=== PATIENT | female | born 1945 ===

== ENCOUNTER 2016-08-18 22:38 | Emergency (ER) | payer MEDICARE, OTHER ==
[2016-08-19] MEDS ORDERED: MAALOX/LIDO2%VISC/SIMETHICONE 40 ML BOT ONE (00:11)
[2016-08-19 00:16] LABS: ABSOLUTE NEUTROPHIL COUNT 9.9 K/mm3 (1.8-7.7); BASO # 0.1 K/mm3 (0.0-0.2); BASO % 0.4 % (0.2-1.0); EOS # 0.1 (0.0-0.5); EOS % 0.5 % (0.9-2.9); HEMATOCRIT 38.5 % (37.0-47.0); HEMOGLOBIN 12.9 gm/l (12.0-16.0); IMM NEUT # 0.1 K/mm3 (0-0.2); IMM NEUT% 0.4 % (0-1); LYMPH # 1.8 (1.0-4.8); LYMPH % 14.6 % (15-45); MEAN CELL VOLUME 87.7 fl (81.0-99.0); MEAN CORPUSCULAR HEMOGLOBIN 29.4 pg (27.0-31.0); MEAN CORPUSCULAR HGB CONC 33.5 g/dl (33.0-37.0); MEAN PLATELET VOLUME 11.5 fl (7.4-10.4); MONO # 0.3 (0.0-0.8); MONO % 2.6 % (4-12); NEUT % 81.5 % (43-75); PLATELET COUNT 227 K/mm3 (130-400); RED CELL DISTRIBUTION WIDTH 13.2 % (11.5-14.5)
[2016-08-19] MEDS ORDERED: ONDANSETRON 4 MG/2ML 2 ML VIAL ONE (00:22)
[2016-08-19 00:27] LABS: ALB/GLOB RATIO 1.1 (>1.0); ALBUMIN 3.9 gm/dL (3.5-5.7)
[2016-08-19] MEDS ORDERED: KETOROLAC TROMETHAMINE 15 MG/ML VIAL ONE (01:01)
== END 2016-08-19 01:23 | disposition home or self-care (01) ==
LOC: ED 22:38
DX: K29.70 Gastritis, unspecified, without bleeding (principal); I10 Essential (primary) hypertension; J45.909 Unspecified asthma, uncomplicated
CPT/HCPCS: 83690; 85025; 80053; 96375; 99283 ×2; 96374; A9270; J1885; J2405

== ENCOUNTER 2016-09-15 14:27 | Inpatient (IN) | payer MEDICARE, OTHER ==
[2016-09-15] MEDS ORDERED: IOPAMIDOL 300 (61%) 100 ML VIAL IV ONE (14:28)
[2016-09-15] MEDS ORDERED: MAALOX/LIDO2%VISC/SIMETHICONE 40 ML BOT ONE (15:19)
[2016-09-15] MEDS ORDERED: SUCRALFATE 1 G/10 ML DOSE ONE (15:20)
[2016-09-15] MEDS ORDERED: LACTATED RINGERS 1,000 ML ONE ×2 (15:20→16:56)
[2016-09-15] MEDS ORDERED: FAMOTIDINE 20 MG TABLET ONE (15:20)
[2016-09-15 15:46] LABS: ABSOLUTE NEUTROPHIL COUNT 6.2 K/mm3 (1.8-7.7); BASO % 0.5 % (0.2-1.0); EOS # 0.2 (0.0-0.5); EOS % 2.2 % (0.9-2.9); HEMATOCRIT 40.4 % (37.0-47.0); HEMOGLOBIN 13.5 gm/l (12.0-16.0); IMM NEUT% 0.2 % (0-1); LYMPH # 1.7 (1.0-4.8); LYMPH % 19.8 % (15-45); MEAN CORPUSCULAR HEMOGLOBIN 29.4 pg (27.0-31.0); MEAN CORPUSCULAR HGB CONC 33.4 g/dl (33.0-37.0); MEAN PLATELET VOLUME 11.6 fl (7.4-10.4); MONO # 0.4 (0.0-0.8); MONO % 5.2 % (4-12); NEUT % 72.1 % (43-75); PLATELET COUNT 228 K/mm3 (130-400); RED CELL DISTRIBUTION WIDTH 13.2 % (11.5-14.5)
[2016-09-15 16:03] LABS: ALB/GLOB RATIO 1.2 (>1.0); CALCIUM 9.1 mg/dL (8.6-10.3)
[2016-09-15] MEDS ORDERED: MORPHINE SULFATE 4 MG/ML SYRINGE ONE (16:25)
[2016-09-15] MEDS ORDERED: PROCHLORPERAZINE 5 MG/ML 2 ML VIAL ONE (16:56)
--- NOTE | 2016-09-15 17:51 | CT ---
ADDENDUM #1 The first line of the impression should read as follows: Simple pancreatitis without evidence of necrosis, pseudocyst or vascular complications. The remainder of the exam stands as is. ORIGINAL REPORT Exam Type: ABD/PELVIS W/ CON Date and Time: 09/15/2016 3:08 PM Clinical information: Epigastric pain and vomiting. Comparison: None Technique: Contiguous axial 4 mm images were obtained from the lung bases through the pelvis after the uneventful IV administration of 100 cc of Isovue-300. Sagittal and coronal reformations with high resolution lung algorithm images were also obtained at this time. CT DI: 10.1 DLP 487.7 FINDINGS: Lung base : Dependent and atelectatic changes are present at the lung bases. Visualized heart:There is no pericardial effusion. LIVER: Diffuse fatty infiltration without focal lesion. Areas of fatty sparing are thought to be present along the dome and gallbladder fossa. BILE DUCTS: Common bile duct measures 1.2 cm on axial image 34. GALLBLADDER: No calcified gallstones. Normal caliber wall. Debris or small stones may be present along the dependent portion. PANCREAS: Peripancreatic inflammation is present compatible with pancreatitis. No definite evidence of necrosis is noted. No pseudocyst, splenic vein thrombosis or splenic artery pseudoaneurysm is present. Moderate inflammation is along the head and uncinate process region. This doesn't gallstones the duodenum. SPLEEN: within normal limits. ADRENALS: within normal limits. KIDNEYS: within normal limits. Stomach and small BOWEL: Normal caliber. Large bowel: Air and stool are noted within the large bowel. Appendix is normal. LYMPH NODES: Chrissie hepatis adenopathy is noted on image 29 measuring 2.1 x 1 cm. Second node on image 36 measures approximately 2.1 x 1.1 cm. PERITONEUM: no ascites or free air, no fluid collection. VESSELS: Mild atherosclerotic disease. RETROPERITONEUM: within normal limits. ABDOMINAL WALL: within normal limits. Bladder: Decompressed. Uterus and adnexa: Present. Dilated tortuous vessels are noted bilaterally. Findings could relate to pelvic congestion syndrome in the correct clinical context and correlation is recommended. BONES: Grade 2 anterolisthesis of L5 on S1 is present. Bilateral pars defects are noted. The sagittal alignment is otherwise intact. No lytic or sclerotic lesions. IMPRESSION: Simple pancreatitis without evidence of sclerosis, pseudocyst or vascular complications. Multiple small stones or sludge is present within the gallbladder. Common bile duct is dilated measuring 1.2 cm. Diffuse fatty infiltration to the liver with probable focal sparing along the dome and gallbladder fossa. Grade 2 anterolisthesis of L5 on S1 with bilateral pars defects. Other incidental findings as above. Findings were called to Dr. Landon at approximately 1746 hours on 09/15/2016.
--- NOTE | 2016-09-15 18:16 | US ---
ABDOMINAL-LIMITED: 09/15/2016 4:22 PM CLINICAL HISTORY: Right upper quadrant pain with elevated lipase and LFTs.. STUDY: Limited right upper quadrant ultrasound COMPARISON: CT abdomen and pelvis earlier on the same day. FINDINGS: Gallbladder: Wall thickness: Normal Cholelithiasis: Multiple small stones or sludge. Pericholecystic Fluid: none Sonographic Cordero's Sign: Positive Bile ducts: Common bile duct measures upwards 7 mm. Limited visualized Liver and RUQ structures: Normal IMPRESSION: Positive sonographic Cordero's sign with small stones and sludge. No other findings of acute cholecystitis. Report was uploaded to the electronic medical record at approximately 1811 hours on 09/15/2016.
[2016-09-15] MEDS ORDERED: BLISTEX LIPSTICK 1 EACH TP PRN (20:19)
[2016-09-15] MEDS ORDERED: SODIUM CHLORIDE 0.9% 100 ML IV PRN (20:19)
[2016-09-15] MEDS ORDERED: BISACODYL 10 MG SUP PR PRN ×2 (20:19→20:23)
[2016-09-15] MEDS ORDERED: INSULIN REGULAR HUMAN (DOSE) 100 UNITS/1 ML SUB-Q PRN (20:23)
[2016-09-15] MEDS ORDERED: ONDANSETRON 4 MG/2ML 2 ML VIAL IV PRN (20:25)
[2016-09-15] MEDS ORDERED: ALBUTEROL NEB 2.5 MG/3 ML VIAL.NEB NEB PRN (20:25)
[2016-09-15] MEDS ORDERED: SODIUM CHLORIDE 0.9% 1,000 ML IV SCH (20:30)
[2016-09-15] MEDS ORDERED: PANTOPRAZOLE SODIUM 40 MG VIAL IV SCH (20:30)
[2016-09-15] MEDS ORDERED: HYDROMORPHONE HCL 2 MG/ML SYRINGE IV PRN (20:31)
[2016-09-15 20:47] VITALS: BMI 27.9
[2016-09-15] MEDS ORDERED: FLU VACC 2016-17 (65 YR+)/PF 180 MCG/0.5 ML SYRINGE IM V ONE (20:49)
[2016-09-15] MEDS ORDERED: PUMP TUBING ONE (21:07)
[2016-09-15] MEDS: HYDROMORPHONE HCL 1 MG/ML SYRINGE IV PRN (21:27)
[2016-09-15] MEDS: PANTOPRAZOLE SODIUM 40 MG VIAL IV SCH (21:27)
[2016-09-15] MEDS: INSULIN GLARGINE (DOSE) 100 UNITS/ML UNIT SUB-Q SCH (21:48)
[2016-09-15] MEDS: SODIUM CHLORIDE 0.9% 1,000 ML IV SCH (23:28)
[2016-09-16] MEDS: HYDROMORPHONE HCL 1 MG/ML SYRINGE IV PRN ×2 (03:57→16:21)
[2016-09-16] MEDS: SODIUM CHLORIDE 0.9% 1,000 ML IV SCH ×4 (03:58→19:21)
[2016-09-16 06:01] LABS: HEMATOCRIT 34.1 % (37.0-47.0); HEMOGLOBIN 11.2 gm/l (12.0-16.0); MEAN CELL VOLUME 90.2 fl (81.0-99.0); MEAN CORPUSCULAR HEMOGLOBIN 29.6 pg (27.0-31.0); MEAN CORPUSCULAR HGB CONC 32.8 g/dl (33.0-37.0); RED CELL DISTRIBUTION WIDTH 13.2 % (11.5-14.5)
[2016-09-16 06:24] LABS: ALB/GLOB RATIO 1.2 (>1.0); ALBUMIN 3.2 gm/dL (3.5-5.7); CALCIUM 7.8 mg/dL (8.6-10.3); CHOLESTEROL RISK RATIO 2.5 (3.7-5.6)
--- NOTE | 2016-09-16 06:34 | HP ---
Lorrie Frank ADMIT DATE: 09/15/2016 CHIEF COMPLAINT: Abdominal pain. HISTORY OF PRESENT ILLNESS: Lorrie is a 70-year-old female who is for the most part healthy. She presented to the emergency room with severe abdominal pain. She has been having off and on abdominal pain for about a month, but it has gotten significantly worse within the last 12 hours or so. She was seen by her primary care physician last week and presumably diagnosed with H-pylori and she was started Clarithromycin and amoxicillin though she is unable to tell exactly why she was placed on these medications. The medications have not seem to help and she has had increasing pain and nausea just today. REVIEW OF SYSTEMS: No fevers, no chills, no headache, no chest pain, no shortness of breath, no cough. No new extremity weakness, numbness, tingling, or swelling. Review of systems as noted otherwise negative. PAST MEDICAL HISTORY: 1. Diabetes mellitus type 2. 2. Hypertension. 3. Distant history of reactive airway disease. PAST SURGICAL HISTORY: None. ALLERGIES: No known drug allergies. CURRENT MEDICATIONS: 1. Metformin 500 mg by mouth daily. 2. Clarithromycin and amoxicillin just prescribed recently, dose is unknown. 3. Losartan 50 mg by mouth daily. SOCIAL HISTORY: She lives with her and daughter in [place]. No alcohol, tobacco, or drug use. FAMILY HISTORY: Noncontributory. OBJECTIVE: VITAL SIGNS: In the emergency room blood pressure 124/62, pulse is 67, respirations 16, O2 sat 94% on room air. GENERAL: This is a well-developed, well-nourished elderly female. At the time I examine her she has been treated with a significant amount of pain medication and is resting comfortably. She is responsive and answers questions appropriately. HEENT: Normocephalic, atraumatic. Oropharynx is moist. NECK: Supple. No JVD. LUNGS: Clear. No wheezes, rales, or rhonchi. HEART: Regular rate and rhythm. ABDOMEN: Soft. Bowel sounds are hypoactive. She is exquisitely tender to palpation in the mid epigastric and right upper quadrant. No organomegaly. EXTREMITIES: No edema. SKIN: Clear with no rashes. LABORATORY: CBC with a white count of 8.5, hemoglobin 13.5, hematocrit 40.4, platelets 228. Chemistry panel with sodium of 137, potassium 3.9, chloride 103, carbon dioxide 24, BUN of 19, creatinine 0.7, glucose of 134, calcium 9.1, total bilirubin 2.6, AST 594, ALT 531, alk phos 219. Tropon in less than 0.01. Lipase is elevated at 3182. Urinalysis is pending. DIAGNOSTICS: Abdominal/pelvic CT scan performed in the emergency room showed findings of pancreatic inflammation with no pseudocyst or necrosis noted consistent with mild pancreatitis by CT criteria. Abdominal ultrasound performed in the emergency room showing gallstones, small stones, and sludge, and a positive sonographic Cordero's sign, but no other findings of cholecystitis. ASSESSMENT: 1. Acute pancreatitis presumed gallstone pancreatitis. 2. Diabetes mellitus type 2. 3. Hypertension. PLAN: We have admitted her to the hospitalist service, will keep her nothing by mouth, treat her with aggressive IV fluid rehydration, and IV medication for pain and nausea as needed. For her diabetes we will place on basal bolus protocol. Will obtain a surgery consult when available. We will follow serial laboratory work. Supportive care otherwise. Deep venous thrombosis prophylaxis with mechanical only as she may be going to surgery in the next 24 hours or so depending on surgical consult. JOB: [id number] CC: Dr. Li in [place] Dr. Alfredito Gandara
--- NOTE | 2016-09-16 07:43 | CONS ---
Lorrie Frank [id number] DATE: 09/15/2016 CHIEF COMPLAINT: Abdominal pain. HISTORY OF PRESENT ILLNESS: Lorrie Frank is a 70-year-old female who was seen in the hospital in consultation on 09/15/2016. She has been feeling ill for a month. She got significantly worse today. She had some nausea with vomiting. She had no hematemesis. She had no fevers. She presented to the emergency room where she was found to have significant elevation of her lipase as well as her liver function tests. She had a CT scan that showed some gallstones without biliary dilation. Pancreatitis was noted. Ultrasound showed mild dilation of the common bile duct at 7 mm with no signs of acute cholecystitis other than a sonographic Cordero's sign. The patient is on amoxicillin and Clarithromycin and it sounds like she tested positive for H-pylori. PAST MEDICAL HISTORY: Hypertension, type 2 diabetes mellitus, history of asthma. PAST SURGICAL HISTORY: None. CURRENT MEDICATIONS: 1. Losartan. 2. Metformin. 3. Amoxicillin. 4. Clarithromycin. ALLERGIES: To medications none known. FAMILY HISTORY: No familial history of intestinal cancers. SOCIAL HISTORY: She does not smoke. She completely denies alcohol use. REVIEW OF SYSTEMS: Constitutional: No complaints. Eyes: No complaints. Ears, nose, throat no complaints. Cardiac: No complaints. Pulmonary: No complaints. GI: As above. : No complaints. Gynecologic: No complaints. Musculoskeletal: No complaints. Neurologic: She has had headaches. Endocrine: No complaints. Hematologic: No complaints. Psychiatric: No complaints. PHYSICAL EXAMINATION: VITALS: Temperature 97.6, pulse 66, blood pressure 136/63, respirations 16, O2 sat 96% on room air. GENERAL: She is awake, but easily falls asleep. She arouses. She responds appropriately to commands with the assistance of her family interpreting for her. HEENT: Head is atraumatic normocephalic. Her pupils are equal. Sclerae are nonicteric. Oropharynx no exudate or erythema seen. NECK: Supple without lymphadenopathy or thyromegaly. LUNGS: Clear to auscultation bilaterally. HEART: Regular rate and rhythm. No murmurs are heard. ABDOMEN: Soft, nondistended. She points to the epigastric region as the area of maximal tenderness. She describes tenderness in all areas of the abdomen with palpation. She seems to wince more in the upper abdomen compared to the lower abdomen. She says that pain radiates into her back. EXTREMITIES: Without cyanosis, clubbing, or edema. NEUROLOGIC: She arouses. She appears oriented. Sensation grossly intact in all extremities without signs of neuropathy. PSYCHIATRIC: With the difficulties with interpreting Cam[place]onian in Faroese she does not appear to have signs of anxiety or depression. Appears able to make informed medical decisions with science interpreter. LABORATORIES: Sodium 137, potassium 3.9, chloride 103, carbon dioxide 24, BUN 19, creatinine 0.7, glucose is 134, total bilirubin is 2.6, AST is 594, ALT is 531, alk phos is 219. Troponin less than 0.01. Albumin 4.0, lipase is 3182. White blood cell count is 8.5, hemoglobin 13.5, and platelets are 228. ASSESSMENT: 1. Acute gallstone pancreatitis. 2. Possible chronic cholecystitis. 3. Possible gastritis with possible Helicobacter pylori infection. 4. Hypertension. 5. Type 2 diabetes mellitus. 6. Asthma. PLAN: Through her family interpreting for her we discussed the etiology of her pancreatitis, it is most certainly caused by gallstones. We will see on follow up laboratories if her pancreatitis and liver function test improve indicating resolution of obstruction. If she continues to show signs of obstruction may need an ERCP. We talked about laparoscopic cholecystectomy during this hospitalization to prevent further attacks of pancreatitis. The family expressed understanding and are agreeable to the plan. At this point, I do not see a need for intravenous antibiotics. We will have to get a hold of outside records to see if we need to treat for Helicobacter pylori. I see no indication that she is on any type of proton pump inhibitor at home. With the pancreatitis is probably reasonable to start her on some intravenous Protonix. My recommendations discussed with hospitalist. Surgery will follow along with the hospitalist service. JOB: [id number]
--- NOTE | 2016-09-16 07:48 | PDOC43 ---
- Subjective Subjective: Reports Pain Tolerable (Better, but still present.), Denies Nausea - Objective Vital Signs Temperature 98.0 F 09/16/16 03:28 Pulse Rate 72 09/16/16 03:28 Respiratory Rate 16 09/16/16 03:28 Blood Pressure 130/62 09/16/16 03:28 O2 Saturation by Pulse Oximetry 96 09/16/16 03:28 Oxygen Delivery Method Room Air Oxygen Flow Rate 0 Laboratory 09/16/16 05:30 09/16/16 05:30 09/16/16 09/16/16 09/15/16 05:30 05:16 21:40 RBC 3.78 L MCHC 32.8 L Estimated GFR 99 H POC Capillary Glucose 118 H 133 H Calcium 7.8 L Total Bilirubin 3.8 H AST 269 H ALT 384 H Alkaline Phosphatase 182 H Total Protein 5.9 L Albumin 3.2 L Cholesterol Risk Factr 2.5 L Lipase 947 H Active Medication Orders Category Date Time Status Albuterol Sulf Neb 2.5mg/3ml [Ventolin Inhalation Med 09/15/16 20:25 Active Solution (Dose)] 2.5 mg NEB Q2H PRN Bisacodyl [Dulcolax] Med 09/15/16 20:23 Active 10 mg [place] DAILY PRN Hydromorphone HCl [Dilaudid] Med 09/15/16 20:25 Active 1 - 2 mg IV Q2H PRN Hydromorphone HCl [Dilaudid] Med 09/15/16 20:31 Active 1 - 2 mg IV Q2H PRN Insulin Glargine (Dose) [Lantus (Dose)] Med 09/15/16 21:00 Active 20 units SUB-Q Q24H Insulin Regular Human (Dose) [Novolin R (Dose)] Med 09/15/16 20:23 Active See Protocol SUB-Q ACBEDTIME PRN Lip [place] [Blistex] Med 09/15/16 20:19 Active 1 each TP PRN PRN Menthol/Cetylpyridinium [Cepacol] Med 09/15/16 20:19 Active 1 each PO PRN PRN Ondansetron 4 mg/2ml Vial [Zofran] Med 09/15/16 20:25 Active 4 mg IV Q3H PRN Pantoprazole Sodium [Protonix] Med 09/15/16 21:00 Active 40 mg IV Q24H Sodium Chloride 0.9% 1,000 ml Med 09/15/16 21:30 Active IV 200 mls/hr Sodium Chloride 0.9% 100 ml Med 09/15/16 20:19 Active IV PRN Sodium Chloride 0.9% Flush [Normal Saline 10ml Flush] Med 09/15/16 20:19 Active 10 - 50 ml IV PRN PRN Sodium Chloride 0.9% Flush [Normal Saline 10ml Flush] Med 09/16/16 01:00 Active 10 ml IV Q8HR Intake and Output 09/15/16 09/16/16 09/17/16 06:59 06:59 06:59 Intake Total 2238 Output Total 600 Balance 1638 General: Alert, Oriented x3 Abdomen: Soft, Tenderness (Epigastric), Non-Distended Skin: Normal Color Psych/Mental Status: Normal Affect - Assessment/ Plan (1) Pancreatitis due to common bile duct stone Status: AcuteAssessment/ Plan: Pancreas better, but bilirubin up. Probably still has a common duct stone. Sips of liquids only. IVF. Follow daily labs. May need ERCP depending on what her bilirubin does going forward. Discussed with hospitalist.
--- NOTE | 2016-09-16 10:51 | PDOC43 ---
- Subjective Chief Complaint: Abd Pain Feels sl better this AM. Still w/ mid-epigastric and RUQ pain. No N/V. No F/ C. No cough/SOB. Subjective: Denies Shortness of Breath, Denies Cough, Denies Chest Pain, Denies Abdominal Pain, Denies Nausea, Denies Vomiting, Denies Fever, Denies Chills - Objective Vital Signs Temperature 98.0 F 09/16/16 07:46 Pulse Rate 73 09/16/16 07:46 Respiratory Rate 16 09/16/16 08:00 Blood Pressure 140/71 09/16/16 07:46 O2 Saturation by Pulse Oximetry 96 09/16/16 07:46 Oxygen Delivery Method Room Air Oxygen Flow Rate 0 Intake and Output 09/15/16 09/16/16 09/17/16 06:59 06:59 06:59 Intake Total 2238 Output Total 600 Balance 1638 General: Alert, Oriented x3, Cooperative, No Acute Distress HEENT: Atraumatic Lungs: Clear to Auscultation Bilaterally Cardiovascular: Gallops Abdomen: Soft, Tenderness, Hypoactive Bowel Sounds, Non-Distended Extremities: No Edema Laboratory 09/16/16 05:30 09/16/16 05:30 09/16/16 09/16/16 09/15/16 05:30 05:16 21:40 RBC 3.78 L MCHC 32.8 L Estimated GFR 99 H POC Capillary Glucose 118 H 133 H Calcium 7.8 L Total Bilirubin 3.8 H AST 269 H ALT 384 H Alkaline Phosphatase 182 H Total Protein 5.9 L Albumin 3.2 L Cholesterol Risk Factr 2.5 L Lipase 947 H 09/15/16 09/16/16 15:15 05:30 Calcium 9.1 7.8 L Total Bilirubin 2.6 H 3.8 H AST 594 H 269 H ALT 531 H 384 H Alkaline Phosphatase 219 H 182 H Triglycerides 48 Cholesterol 157 Cholesterol Risk Factr 2.5 L LDL Cholesterol 85 VLDL Cholesterol 10 HDL Cholesterol 62 Lipase 3182 H 947 H Current Medications: Current meds reviewed in EMR. - Problems: Assessment/Plan (1) Pancreatitis due to common bile duct stone Status: AcuteAssessment/Plan: Sl improvement though bili increased. Con't IVF, supportive care. Follow labs. Surgery following- anticipate ERCP vs choly in near future. (2) DM2 (diabetes mellitus, type 2) Qualifiers: Diabetes mellitus complication status: without complication Status: ChronicAssessment/Plan: Stable. Con't to hold po meds and tx with basal/bolus. (3) HTN (hypertension) Qualifiers: Hypertension type: essential hypertension Qualifier Code: (I10) Essential (primary) hypertension Status: ChronicAssessment/Plan: Stable. Con't to hold po meds. VTE Prophylaxis: Mechanical Disposition: Unknown.
[2016-09-16] MEDS: PANTOPRAZOLE SODIUM 40 MG VIAL IV SCH (20:57)
[2016-09-16] MEDS: INSULIN GLARGINE (DOSE) 100 UNITS/ML UNIT SUB-Q SCH (20:57)
[2016-09-17] MEDS: SODIUM CHLORIDE 0.9% 1,000 ML IV SCH ×2 (00:19→05:22)
[2016-09-17 05:55] LABS: HEMOGLOBIN 10.7 gm/l (12.0-16.0); MEAN CELL VOLUME 92.1 fl (81.0-99.0); MEAN CORPUSCULAR HGB CONC 31.5 g/dl (33.0-37.0); RED CELL DISTRIBUTION WIDTH 13.6 % (11.5-14.5)
[2016-09-17 06:12] LABS: CALCIUM 7.2 mg/dL (8.6-10.3)
[2016-09-17] MEDS ORDERED: SODIUM CHLORIDE 0.9% 1,000 ML IV SCH (07:57)
[2016-09-17] MEDS ORDERED: POTASSIUM CHLORIDE 40 MEQ in SODIUM CHLORIDE 0.9% 500 ML IV ONE (08:30)
--- NOTE | 2016-09-17 14:02 | PDOC43 ---
- Subjective Chief Complaint: Abd Pain Spoke with pt and family with assistance of Estephanie, who translated for us. Patient reports feeling better, pain reduced. Breathing feels a little fast, but overall, feeling much better. - Objective Vital Signs Temperature 99.6 F 09/17/16 07:41 Pulse Rate 68 09/17/16 07:41 Respiratory Rate 16 09/17/16 07:46 Blood Pressure 125/67 09/17/16 07:41 O2 Saturation by Pulse Oximetry 97 09/17/16 07:41 Oxygen Delivery Method Room Air Oxygen Flow Rate 0 Vital Signs Last 12 Hours Temp Pulse Resp BP Pulse Ox 09/17/16 07:46 16 09/17/16 07:41 99.6 F 68 16 125/67 97 Intake and Output 09/15/16 09/16/16 09/17/16 23:59 23:59 23:59 Intake Total 4638 2862 Output Total 1050 600 Balance 3588 2262 General: Alert, Cooperative, No Acute Distress HEENT: Atraumatic Lungs: Clear to Auscultation Bilaterally, Normal Air Movement Cardiovascular: Regular Rate and Rhythm Abdomen: Soft, Tenderness (mild epigastric discomfort, but reports better than at admission.), Normal Bowel Sounds (quiet, but normal.) Extremities: No Edema, No Tenderness Skin: Normal Color Neurological: Normal Speech Psych/Mental Status: Normal Affect, Normal Mood Laboratory 09/17/16 05:30 09/17/16 05:30 09/17/16 05:30 RBC 3.69 L MCHC 31.5 L Estimated GFR 99 H Calcium 7.2 L AST 87 H ALT 241 H Alkaline Phosphatase 174 H Total Protein 5.9 L Albumin 3.0 L bili 1.0 Current Medications: Current meds reviewed in EMR. Active Medications Albuterol Sulfate (Ventolin Inhalation Solution (Dose)) 2.5 mg NEB Q2H PRN PRN Reason: Wheezing Benzocaine/Menthol (Cepacol) 1 each PO PRN PRN PRN Reason: Sore Throat Bisacodyl (Dulcolax) 10 mg [place] DAILY PRN PRN Reason: Constipation Hydromorphone HCl (Dilaudid) 1 - 2 mg IV Q2H PRN PRN Reason: Pain Last Admin: 09/16/16 16:21 Dose: 1 mg Hydromorphone HCl (Dilaudid) 1 - 2 mg IV Q2H PRN PRN Reason: Pain Sodium Chloride (Sodium Chloride 0.9%) 100 mls @ 25 mls/hr IV PRN PRN PRN Reason: Flush Sodium Chloride (Sodium Chloride 0.9%) 1,000 mls @ 125 mls/hr IV .Q8H [facility] Last Admin: 09/17/16 08:59 Dose: 125 mls/hr Insulin Glargine (Lantus (Dose)) 20 units SUB-Q Q24H [facility] Last Admin: 09/16/16 20:57 Dose: 20 units Insulin Human Regular (Novolin R (Dose)) 0 units SUB-Q ACBEDTIME PRN; Protocol PRN Reason: Blood Sugar > Ondansetron HCl (Zofran) 4 mg IV Q3H PRN PRN Reason: Nausea/Vomiting Last Admin: 09/15/16 21:27 Dose: 4 mg Pantoprazole Sodium (Protonix) 40 mg IV Q24H [facility] Last Admin: 09/16/16 20:57 Dose: 40 mg Petrolatum/Paraffin/Mineral Oil (Blistex) 1 each TP PRN PRN PRN Reason: Dry and/or chapped lips Sodium Chloride (Normal Saline 10ml Flush) 10 - 50 ml IV PRN PRN PRN Reason: IV Flush Last Admin: 09/15/16 21:26 Dose: 20 ml Sodium Chloride (Normal Saline 10ml Flush) 10 ml IV Q8HR [facility] Last Admin: 09/17/16 08:59 Dose: Not Given - Problems: Assessment/Plan (1) Pancreatitis due to common bile duct stone Status: AcuteAssessment/Plan: Appears improved. Bili down to 1.0 today. Con't IVF, supportive care. Following labs. Surgery following- may be considered for chasidy in near future. (2) DM2 (diabetes mellitus, type 2) Qualifiers: Diabetes mellitus complication status: without complication Status: ChronicAssessment/Plan: Stable. BG 81-119 recently. Holding po meds and tx with basal/bolus. (3) HTN (hypertension) Qualifiers: Hypertension type: essential hypertension Qualifier Code: (I10) Essential (primary) hypertension Status: ChronicAssessment/Plan: Stable. Con't to hold po meds. VTE Prophylaxis: Mechanical Disposition: Unknown. Additional Comments: Check CXR for fluid overload. Holding IVF for now.
--- NOTE | 2016-09-17 15:16 | RAD ---
CHEST-AP BEDSIDE COMPARISON: Chest 2 views, 11/23/2009 HISTORY: Dyspnea FINDINGS: Views: Frontal chest. Lungs: Transverse band of increased density in the right lung base. Heart and vessels: Normal Trachea and bronchi: Normal Mediastinum and carol: Normal Costophrenic sulci: Mild blunting on the right. Chest wall and bones: Normal Upper abdomen: Normal. IMPRESSION: Mild right pleural effusion with possible infiltrate in the right lung base.
[2016-09-17] MEDS: PANTOPRAZOLE SODIUM 40 MG VIAL IV SCH (21:12)
[2016-09-17] MEDS: INSULIN GLARGINE (DOSE) 100 UNITS/ML UNIT SUB-Q SCH (21:12)
[2016-09-18 06:12] LABS: BILIRUBIN,INDIRECT 0.5 mg/dL (0.2-1.0)
[2016-09-18 06:15] LABS: BILIRUBIN,DIRECT 0.3 mg/dL (0.0-0.2)
--- NOTE | 2016-09-18 14:16 | PDOC43 ---
- Subjective Chief Complaint: Abd Pain Subjective: Reports Pain Tolerable, Reports Tolerating Diet Well, Reports Abdominal Pain (markedly improved), Denies Fever - Objective Vital Signs Temperature 98.6 F 09/18/16 13:30 Pulse Rate 67 09/18/16 13:30 Respiratory Rate 18 09/18/16 13:30 Blood Pressure 124/68 09/18/16 13:30 O2 Saturation by Pulse Oximetry 97 09/18/16 13:30 Oxygen Delivery Method Room Air Oxygen Flow Rate 0 Intake and Output 09/17/16 09/18/16 09/19/16 06:59 06:59 06:59 Intake Total 5262 2109 Output Total 1050 950 Balance 4212 1159 General: Alert, Oriented x3, Cooperative, No Acute Distress HEENT: Mucous membr. moist/pink Lungs: Clear to Auscultation Bilaterally Cardiovascular: Regular Rate and Rhythm Abdomen: Soft, Normal Bowel Sounds, Non-Distended, Other (minimal epigastric discomfort), No Tenderness Extremities: No Edema Laboratory 09/17/16 05:30 09/17/16 05:30 09/18/16 05:30 Direct Bilirubin 0.3 H AST 42 H ALT 165 H Alkaline Phosphatase 157 H Total Protein 6.0 L Albumin 3.0 L Current Medications: Current meds reviewed in EMR. - Problems: Assessment/Plan (1) Pancreatitis due to common bile duct stone Status: AcuteAssessment/Plan: Appears improved. Bili normal. Cont. IVF, supportive care. Following labs. Appreciate Surgery following- considering for chasidy in am. (2) DM2 (diabetes mellitus, type 2) Qualifiers: Diabetes mellitus complication status: without complication Diabetes mellitus termination clerk insulin use: without correction use Qualifier Code: (E11.9 ) Type 2 diabetes mellitus without complications Status: ChronicAssessment/ Plan: Stable. (3) HTN (hypertension) Qualifiers: Hypertension type: essential hypertension Qualifier Code: (I10) Essential (primary) hypertension Status: ChronicAssessment/Plan: Stable. Cont. to hold po meds. (4) Pleural effusion Status: SuspectedAssessment/Plan: CXR suggests some pleural effusion, poss infiltrate. Suspect fluid overload from IV fluids. IVF held yesterday; weight up > 6Kg. Sats good at 99% on RA. WBC up some, difficult to know if related to pancreatitis or other. VTE Prophylaxis: Mechanical Disposition: possibly tomorrow after surgery
[2016-09-18] MEDS: INSULIN GLARGINE (DOSE) 100 UNITS/ML UNIT SUB-Q SCH (20:35)
[2016-09-18] MEDS: PANTOPRAZOLE SODIUM 40 MG VIAL IV SCH (23:02)
[2016-09-18] MEDS: MENTHOL/CETYLPYRD 1 EACH LOZENGE PO PRN (23:04)
[2016-09-19] MEDS: MENTHOL/CETYLPYRD 1 EACH LOZENGE PO PRN (02:31)
[2016-09-19 06:40] LABS: ABSOLUTE NEUTROPHIL COUNT 9.1 K/mm3 (1.8-7.7); BASO # 0.1 K/mm3 (0.0-0.2); BASO % 0.4 % (0.2-1.0); EOS # 0.2 (0.0-0.5); EOS % 1.7 % (0.9-2.9); HEMOGLOBIN 10.5 gm/l (12.0-16.0); IMM NEUT% 0.3 % (0-1); LYMPH # 1.9 (1.0-4.8); LYMPH % 15.9 % (15-45); MEAN CELL VOLUME 89.1 fl (81.0-99.0); MEAN CORPUSCULAR HEMOGLOBIN 29.2 pg (27.0-31.0); MEAN CORPUSCULAR HGB CONC 32.8 g/dl (33.0-37.0); MEAN PLATELET VOLUME 12.7 fl (7.4-10.4); MONO # 0.6 (0.0-0.8); MONO % 4.7 % (4-12); PLATELET COUNT 166 K/mm3 (130-400); RED CELL DISTRIBUTION WIDTH 13.3 % (11.5-14.5)
[2016-09-19 07:01] LABS: CALCIUM 8.2 mg/dL (8.6-10.3)
[2016-09-19] MEDS ORDERED: POTASSIUM CHLORIDE 20 MEQ in SODIUM CHLORIDE 0.9% 250 ML IV ONE (07:36)
[2016-09-19] MEDS ORDERED: PUMP TUBING ONE (08:24)
[2016-09-19] MEDS ORDERED: IV START KIT ONE (08:29)
[2016-09-19] MEDS ORDERED: MAGNESIUM SULFATE 2 G/50 ML 2 G in Premix (Water) 50 ml 1 EACH IV ONE (10:07)
--- NOTE | 2016-09-19 10:18 | PDOC43 ---
- Subjective Chief Complaint: Abd Pain Patient awake and alert, looking forward to surgery. Family at bedside helping with translation. She has no questions or concerns. She denies chest pain, shortness of breath and abdominal pain improved. Subjective: Reports Pain Tolerable, Denies Urinating Without Difficulty, Denies Shortness of Breath, Denies Cough, Denies Chest Pain, Denies Abdominal Pain, Denies Nausea, Denies Vomiting - Objective Vital Signs Temperature 98.7 F 09/19/16 08:00 Pulse Rate 72 09/19/16 08:00 Respiratory Rate 16 09/19/16 08:00 Blood Pressure 125/70 09/19/16 08:00 O2 Saturation by Pulse Oximetry 98 09/19/16 08:00 Oxygen Delivery Method Room Air Oxygen Flow Rate 0 Intake and Output 09/17/16 09/18/16 09/19/16 23:59 23:59 23:59 Intake Total 4971 890 450 Output Total 1350 1375 1000 Balance 3621 -485 -550 General: Alert, Oriented x3, Cooperative, No Acute Distress HEENT: Mucous membr. moist/pink Lungs: Clear to Auscultation Bilaterally, Normal Air Movement Cardiovascular: Regular Rate and Rhythm, Normal S1, Normal S2 Abdomen: Soft, Non-Distended, No Rigid, No Tenderness, No Rebounding Extremities: No Cyanosis, No Edema, No Tenderness Neurological: Normal Speech Psych/Mental Status: Normal Mood Laboratory 09/19/16 06:00 09/19/16 06:00 09/19/16 06:00 RBC 3.59 L MCHC 32.8 L Estimated GFR 99 H Calcium 8.2 L Magnesium 1.7 L Current Medications: Current meds reviewed in EMR. - Problems: Assessment/Plan (1) Pancreatitis due to common bile duct stone Status: AcuteAssessment/Plan: Appears improved. Bili normal. Cont. IVF, supportive care. Following labs. Cholesectomy today. (2) DM2 (diabetes mellitus, type 2) Qualifiers: Diabetes mellitus complication status: without complication Diabetes mellitus termite control service representative insulin use: without termite control service representative use Qualifier Code: (E11.9 ) Type 2 diabetes mellitus without complications Status: ChronicAssessment/ Plan: Stable. (3) HTN (hypertension) Qualifiers: Hypertension type: essential hypertension Qualifier Code: (I10) Essential (primary) hypertension Status: ChronicAssessment/Plan: Stable. Cont. to hold po meds. (4) Pleural effusion Status: SuspectedAssessment/Plan: CXR suggests some pleural effusion, poss infiltrate. Suspect fluid overload from IV fluids. IVF held yesterday; weight up > 6Kg. Sats good at 99% on RA. WBC up some, difficult to know if related to pancreatitis or other. Monitor (5) Hypokalemia Status: AcuteAssessment/Plan: 2nd to poor PO intake over past week, hypomagnesia. Replace (6) Hypomagnesemia Status: AcuteAssessment/Plan: Poor PO intake over past week, replace VTE Prophylaxis: Mechanical Disposition: possibly tomorrow after surgery Additional Comments: Check CXR for fluid overload. Holding IVF for now.
[2016-09-19] MEDS ORDERED: LIDOCAINE 1%/EPI 1:100,000 (MULTI DOSE) 30 ML VIAL ONE (11:28)
[2016-09-19] MEDS ORDERED: FENTANYL 250 MCG/5 ML AMP ONE (11:40)
[2016-09-19] MEDS ORDERED: PROPOFOL 20 ML IV ONE (12:00)
[2016-09-19] MEDS ORDERED: DIPHENHYDRAMINE HCL 50 MG/1 ML VIAL ONE (12:00)
[2016-09-19] MEDS ORDERED: DEXAMETHASONE SOD PHOS 4 MG/1 ML VIAL ONE (12:00)
[2016-09-19] MEDS ORDERED: LIDOCAINE 2% (MULTI DOSE) 10 ML VIAL ONE (12:00)
[2016-09-19] MEDS ORDERED: ONDANSETRON 4 MG/2ML 2 ML VIAL ONE (12:00)
[2016-09-19] MEDS ORDERED: ROCURONIUM BROMIDE 10 MG/ML DOSE IV ONE (12:01)
[2016-09-19] MEDS ORDERED: NEOSTIGMINE METHYLSULFATE 1 MG/ML DOSE ONE (12:01)
[2016-09-19] MEDS ORDERED: GLYCOPYRROLATE 0.2 MG/ML 1ML VIAL ONE (12:01)
[2016-09-19] MEDS ORDERED: METRONIDAZOLE 500 MG/NS 100 ML 500 MG in Premix (NS) 100 ml 1 EACH IV PRN (12:18)
[2016-09-19] MEDS ORDERED: Heparin Sodium 5000 unit/0.5ml syringe SUB-Q ONE (12:18)
[2016-09-19] MEDS ORDERED: CEFAZOLIN SODIUM 1,000 MG VIAL ONE (12:41)
[2016-09-19] MEDS ORDERED: FENTANYL 100 MCG/2 ML VIAL ONE (12:51)
[2016-09-19] MEDS ORDERED: FENTANYL 100 MCG/2 ML VIAL IV PRN (12:54)
[2016-09-19] MEDS ORDERED: PROMETHAZINE HCL 25 MG/ML VIAL IM PRN (12:54)
[2016-09-19] MEDS ORDERED: ATROPINE SULFATE 0.4 MG/1 ML VIAL IV PRN (12:54)
[2016-09-19] MEDS ORDERED: HYDROMORPHONE HCL 1 MG/ML SYRINGE IV PRN (12:54)
[2016-09-19] MEDS ORDERED: ONDANSETRON 4 MG/2ML 2 ML VIAL IV PRN (12:54)
[2016-09-19] MEDS ORDERED: NALOXONE HCL 0.4 MG/ML VIAL IV PRN (12:54)
[2016-09-19] MEDS ORDERED: KETOROLAC TROMETHAMINE 30 MG/ML 1 ML VIAL ONE (13:09)
--- NOTE | 2016-09-19 13:26 | PCMON ---
Date of Procedure: 09/19/16 Start Time: 12:30 pm PREOPERATIVE DIAGNOSIS Gallstone pancreatitis POSTOPERATIVE DIAGNOSIS same PROCEDURE PERFORMED Laparoscopic cholecystectomy. COMPLICATIONS None. OPERATIVE FINDINGS Edematous gallbladder ESTIMATED BLOOD LOSS 30 mL. BRIEF INDICATIONS SELVIN MARTIN is a 70 year old F patient with symptoms consistent with gallbladder disease and was admitted for consideration of laparoscopic cholecystectomy. The preoperative liver function tests were elevated but normalized prior to surgery. Risks and benefits of surgery were explained to the patient, including the 1: 200 risk of common bile duct injury and the possible need for conversion to open technique (5%). The patient declined the possible alternatives and agreed to proceed with surgery, providing informed consent. DESCRIPTION OF PROCEDURE The patient was brought to the operating room and placed supine on the operating room table. A surgical briefing was held to verify the correct patient and correct procedure. A general anesthetic was induced uneventfully, followed by the administration of a subcutaneous heparin injection and perioperative antibiotics. Pneumatic compression stockings were placed on the legs and powered on. The abdomen was prepped and draped in a sterile fashion. A 5-mm direct optical view trocar was used to enter the right upper quadrant under direct vision of the abdominal wall layers. Once inside the abdominal cavity, a pneumoperitoneum was created. No injury to underlying structures occurred with placement of this trocar. Once inside the abdominal cavity, an additional 11-mm port was placed in the upper midline just below the xiphisternum. An additional 5-mm port was placed in the supraumbilical position , and a 5-mm port was placed in the right lateral position. All trocars were placed under direct visualization. There was no injury to underlying structures with placement of these trocars. Once inside the abdominal cavity and the pneumoperitoneum was created, the gallbladder was retracted over the liver. We were able to identify inflammation around the gallbladder, and there appeared to be stones in Pasha pouch. The gallbladder was then grasped by Pasha pouch and retracted up away from the common bile duct. Pre-dissection safety checklist: Fundus of gallbladder retracted to 10 o'clock: yes. Line between Rouviere sulcus and base of segment IV identified: yes. Safe level of dissection identified: yes. Posterior leaf of peritoneum covering hepatobiliary triangle identified: yes. The dissection was initiated with hook electrocautery on the posterior peritoneum covering of the hepatobiliary triangle, followed by the medical border of the gallbladder in the region of Calot triangle. We identified the lymph node of Calot which was not removed during the dissection. We continued our dissection, mobilizing lymph node off the cystic artery. As the triangle was developed, the cystic artery was identified. An intraoperative cholangiogram was not performed. The cystic duct and artery were both identified and exposed. A critical view of safety was obtained by clearing all the tissue between the underside of the infundibulum and the liver so the cystic duct and the artery could be clearly seen going into the gallbladder. The triangle of Calot had no aberrant structures or additional anatomy present within the triangle between the liver bed, the cystic duct and the region of the gallbladder. Once the critical view was demonstrated and there was no evidence of additional structures, we turned our attention to clipping the cystic artery and duct. Pre-clipping of cystic duct safety checklist: Critical view confirmed: yes. The cystic artery was clipped twice proximally, once distally and transected. This was confirmed as the artery with pulsatile beating in the region of the clips once transected. Once the artery was taken, we turned our attention to clipping the cystic duct. The cystic duct was clipped with 2 to 3 clips proximally and once distally. This was then transected, and we then removed the gallbladder from the gallbladder bed. No injury to the underlying liver occurred with removal of the gallbladder, there was no evidence of bile leak or bile duct injury, and the gallbladder was not perforated with no spillage of stones prior to removal. The gallbladder was then placed in an Endocatch bag and removed through the 11-mm trocar. Once the trocar was removed, we then irrigated the right upper quadrant. The pneumoperitoneum was released, and the trocars were removed under direct visualization.
[2016-09-19] MEDS: LACTATED RINGERS 1,000 ML IV SCH (17:35)
[2016-09-19] MEDS: TRAMADOL HCL 50 MG TABLET PO PRN (17:50)
[2016-09-19] MEDS: PANTOPRAZOLE SODIUM 40 MG VIAL IV SCH (20:21)
[2016-09-20] MEDS: TRAMADOL HCL 50 MG TABLET PO PRN ×2 (02:41→10:38)
[2016-09-20] MEDS: LACTATED RINGERS 1,000 ML IV SCH (05:13)
[2016-09-20 06:32] LABS: ABSOLUTE NEUTROPHIL COUNT 7.4 K/mm3 (1.8-7.7); BASO % 0.3 % (0.2-1.0); EOS % 0.1 % (0.9-2.9); HEMATOCRIT 31.9 % (37.0-47.0); HEMOGLOBIN 10.5 gm/l (12.0-16.0); IMM NEUT # 0.1 K/mm3 (0-0.2); IMM NEUT% 0.5 % (0-1); LYMPH # 1.4 (1.0-4.8); LYMPH % 14.6 % (15-45); MEAN CELL VOLUME 88.9 fl (81.0-99.0); MEAN CORPUSCULAR HEMOGLOBIN 29.2 pg (27.0-31.0); MEAN CORPUSCULAR HGB CONC 32.9 g/dl (33.0-37.0); MEAN PLATELET VOLUME 12.4 fl (7.4-10.4); MONO # 0.5 (0.0-0.8); MONO % 5.2 % (4-12); NEUT % 79.3 % (43-75); PLATELET COUNT 182 K/mm3 (130-400); RED CELL DISTRIBUTION WIDTH 13.3 % (11.5-14.5)
[2016-09-20 06:51] LABS: ALB/GLOB RATIO 0.9 (>1.0); ALBUMIN 2.9 gm/dL (3.5-5.7); BILIRUBIN,DIRECT 0.1 mg/dL (0.0-0.2); CALCIUM 8.1 mg/dL (8.6-10.3); MAGNESIUM 2.1 mg/dL (1.9-2.7)
[2016-09-20 07:48] VITALS: BP 126/67
--- NOTE | 2016-09-20 09:58 | PDOC5 ---
ADMIT DATE: 09/15/16 DISCHARGE DATE: 09/20/16 ADMISSION DIAGNOSES: Gallstone Pancreatitis Discharge Diagnoses: Gallstone Pancreatitis DM 2 HTN PROCEDURES PERFORMED THIS HOSPITALIZATION: Laproscopic Cholecyestecomy CONSULTATIONS: General Surgery HOSPITAL COURSE: This is a 70 year old female who developed abdominal pain that had been on-off for a month. She was started on clarithromycin and amoxicillin for presumed H Pylori without an improvement in her symptoms. In the emergency department she was found to have an elevated lipase of 3182, AST 594, ALT 531 and alk phos of 219. Imaging revealed pancreatitis with gallstones present in the gallbladder and dilated common duct. She was admitted to the hospital and treated symptomatically. When her symptoms improved, she underwent a laproscopic cholesectomy. Post-op Day 1, her pain was controlled, she is tolerating diet and ambulatory without difficulties. Her electrolytes abnormalities were correctly. Her lab abnormalities improved with the resolution of the pancreatitis. - Exam Vital Signs Temperature 98.4 F 09/20/16 07:47 Pulse Rate 71 09/20/16 07:47 Respiratory Rate 16 09/20/16 07:59 Blood Pressure 126/67 09/20/16 07:47 O2 Saturation by Pulse Oximetry 95 09/20/16 07:47 Oxygen Delivery Method Room Air Oxygen Flow Rate 0 General: Alert, Oriented x3, Cooperative, Other (morbidly obese), No Acute Distress HEENT: Atraumatic, PERRLA, EOMI, Mucous membr. moist/pink Lungs: Clear to Auscultation Bilaterally, Normal Air Movement Cardiovascular: Regular Rate and Rhythm, Normal S1, Normal S2 Abdomen: Soft, Tenderness, Mild Distention, Other (incision sites clean/dry/ intact), No Rigid, No Rebounding Extremities: No Cyanosis, No Edema, No Tenderness Neurological: Normal Speech Psych/Mental Status: Normal Mood - Results Laboratory 09/20/16 05:15 09/20/16 05:15 09/20/16 05:15 RBC 3.59 L MCHC 32.9 L Estimated GFR 99 H Calcium 8.1 L ALT 87 H Alkaline Phosphatase 117 H Total Protein 6.0 L Albumin 2.9 L Albumin/Globulin Ratio 0.9 L Laboratory Tests 09/15/16 09/16/16 09/17/16 15:15 05:30 05:30 Total Bilirubin 2.6 H 3.8 H AST 594 H 269 H 87 H ALT 531 H 384 H 241 H Alkaline Phosphatase 219 H 182 H Cholesterol 157 Cholesterol Risk Factr 2.5 L LDL Cholesterol 85 VLDL Cholesterol 10 HDL Cholesterol 62 Lipase 3182 H 947 H 54 09/18/16 09/20/16 05:30 05:15 Total Bilirubin AST 42 H 19 ALT 165 H 87 H Alkaline Phosphatase 157 H 117 H Cholesterol Cholesterol Risk Factr LDL Cholesterol VLDL Cholesterol HDL Cholesterol Lipase 42 Laboratory Tests 09/15/16 09/16/16 09/17/16 15:15 05:30 05:30 WBC 8.5 9.4 13.5 H 09/19/16 09/20/16 06:00 05:15 WBC 11.8 H 9.4 Imaging Results: CXR 09/17/2016: Mild right pleural effusion with possible infiltrate in the right lung base US abdomen: Positive sonographic Cordero's sign with small stones and sludge. No other findings of acute cholecystitis CT Abd/pelvis: Simple pancreatitis without evidence of necrosis, pseudocyst or vascular complications. Multiple small stones or sludge present within the gallbladder. Common bile duct is dilated measuring 1.2 cm. Diffuse fatty infiltrate to the liver with probable focal sparing along dome and gallbladder fossa. 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 - Problems:Assessment/Plan (1) Pancreatitis due to common bile duct stone Status: AcuteAssessment/Plan: Appears improved. Bili normal. Cont. IVF, supportive care. Following labs. Cholesectomy today. Post-op day 1 lap chasidy, doing well. Tolerating diet (2) DM2 (diabetes mellitus, type 2) Qualifiers: Diabetes mellitus complication status: without complication Diabetes mellitus superintendent container terminal insulin use: without detention use Qualifier Code: (E11.9 ) Type 2 diabetes mellitus without complications Status: ChronicAssessment/ Plan: Stable. (3) HTN (hypertension) Qualifiers: Hypertension type: essential hypertension Qualifier Code: (I10) Essential (primary) hypertension Status: ChronicAssessment/Plan: Stable. Cont. to hold po meds. (4) Pleural effusion Status: SuspectedAssessment/Plan: CXR suggests some pleural effusion, poss infiltrate. Suspect fluid overload from IV fluids. IVF held yesterday; weight up > 6Kg. Sats good at 99% on RA. WBC up some, difficult to know if related to pancreatitis or other. Monitor (5) Hypokalemia Status: AcuteAssessment/Plan: 2nd to poor PO intake over past week, hypomagnesia. Replace (6) Hypomagnesemia Status: AcuteAssessment/Plan: Poor PO intake over past week, replace - Disposition: Disposition: possibly tomorrow after surgery - Discharge Plan Follow-Up: Alfredito Slaughter MD [Staff Physician] - (Dr Slaughter is a surgeon. Please call his office to schedule a follow up appointment.) Condition: Stable Disposition: Home
--- NOTE | 2016-09-23 13:52 | SURGPATH ---
[facility] [address] [place] [id number] Patient Name: SELVIN DOSS MR#: [id number] : 1945 Gender: F Specimen #: [id number] Collected: 09/19/2016 Received: 09/22/2016 Reported: 09/23/2016 Submitting Phys: CRYSTAL BRICEÑO Copy To Phys: [facility] Clinical History / Pre-Operative Diagnosis: Gallstone pancreatitis Specimen Source / Surgical Procedure Performed: Gallbladder Interpretation: GALLBLADDER, CHOLECYSTECTOMY: - MILD CHRONIC CHOLECYSTITIS. - CHOLELITHIASIS. - NO EVIDENCE OF MALIGNANCY. Electronically Signed Out Davian Jenkins M.D., Ph.D. Gross Description: The specimen is received in formalin labeled with the patient's name and "gallbladder". The specimen consists of an 8.0 x 3.5 x 3.0 cm intact gallbladder. The mucosa is green and velvety. There are many dark brown 0.3-0.5 cm faceted calculi. The wall is edematous. A. exhibit display representative including cystic duct MONTSERRAT Hernández Microscopic Description: Examination of multiple sections from the gallbladder shows gallbladder wall with a mild chronic inflammatory cell infiltrate associated with scattered Rokitansky-Aschoff sinuses. There is no evidence of malignancy. 1: [id number] K80.10
== END 2016-09-20 11:41 | disposition home or self-care (01) | DRG 418 ==
LOC: ED 14:27 → MS 19:11
PROVIDERS: ADMIT Family Medicine; ATTEND Surgery
PROC: 0FT44ZZ Resection of Gallbladder, Percutaneous Endoscopic Approach (ICD-10-PCS; principal; 2016-09-20)
DX: K85.10 Biliary acute pancreatitis without necrosis or infection (principal); J90 Pleural effusion, not elsewhere classified; E11.9 Type 2 diabetes mellitus without complications; I10 Essential (primary) hypertension; K76.0 Fatty (change of) liver, not elsewhere classified; E87.6 Hypokalemia; E83.42 Hypomagnesemia